=== PATIENT | male | born 1960 | race Caucasian/White ===

== ENCOUNTER 2016-12-15 06:05 | Day surgery (SDC) | payer MEDICAID ==
[~2016-12-15] VITALS: Ht 180.3 cm; Wt 89.1 kg
[~2016-12-15 06:05] MED LIST: BUDE10.2 IH; FLUT16H NASAL; MONT10TA21 PO; OMEP20 PO
[2016-12-15] MEDS ORDERED: SODIUM CHLORIDE 0.9% 1,000 ML IV ONE ×2 (06:17→07:00)
[2016-12-15] MEDS ORDERED: MIDAZOLAM HCL 2 MG/2 ML VIAL ONE (06:56)
[2016-12-15] MEDS ORDERED: FentaNYL CITRATE-PF 100 MCG/2 ML VIAL ONE (06:57)
[2016-12-15] MEDS ORDERED: MethylPREDNISolone SOD SUCC 125 MG/2 ML VIAL IVP ONE (08:30)
[2016-12-15] MEDS ORDERED: MethylPREDNISolone SOD SUCC 125 MG/2 ML VIAL ONE (08:53)
[2016-12-15] MEDS ORDERED: ALBUTEROL SULFATE 2.5 MG/0.5 ML NEB SOLUTION NEB ONE (17:08)
[2016-12-15] MEDS ORDERED: LIDOCAINE HCL 2% 30 ML JELLY TP ONE (17:08)
[2016-12-15] MEDS ORDERED: BENZOCAINE 20% 50 MCG/SPRAY 57 GM TP ONE (17:08)
[2016-12-15] MEDS ORDERED: LIDOCAINE HCL 4% 50 ML SOLUTION TP ONE (17:08)
[2016-12-15] MEDS ORDERED: OXYGEN THERAPY IH SCH (20:00)
== END 2016-12-15 09:45 | disposition home or self-care (01) ==
LOC: SURGERY 06:05
PROVIDERS: ATTEND Internal Medicine Critical Care Medicine
DX: J38.4 Edema of larynx (principal); B37.0 Candidal stomatitis; M54.9 Dorsalgia, unspecified; Z72.89 Other problems related to lifestyle; Z98.890 Other specified postprocedural states; Z87.891 Personal history of nicotine dependence
CPT/HCPCS: 31623; 31624; 71010; 87015 ×2; 87070; 87101; 87205; 87220; 88108; 88312; J2250; J2930; J3010; J7030